=== PATIENT | male | born 1985 ===

== ENCOUNTER 2020-10-14 21:09 | Emergency (ER) | payer MEDICAID ==
--- NOTE | 2020-10-14 21:24 | EDM.PDOC ---
ED HPI GENERAL MEDICAL PROBLEM - General Chief Complaint: General Stated Complaint: RIGHT SIDE OF RIBS, FELL IN BATHROOM Time Seen by Provider: 10/14/20 21:15 Source of Information: Reports: Patient, RN, RN Notes Reviewed History Limitations: Reports: No Limitations - History of Present Illness INITIAL COMMENTS - FREE TEXT/NARRATIVE: Patient presents to the ED via personal vehicle with complaints of pain to his right lateral chest. The patient reports his slipped and fell in his bathroom approximately two hours ago and landed onto the side of the tub. He characterizes the pain as sharp in nature. He attest to shortness of breath with inspiration and feels as if he needs to splint to take a deep breath. He denies history of injury to his right lateral chest. He has taken ibuprofen 400mg x1 for this pain. He denies tobacco, alcohol, or recreational drug use. - Related Data Allergies Allergy/AdvReac Type Severity Reaction Status Date / Time Penicillins Allergy Cannot Verified 10/14/20 21:39 Remember Sulfa (Sulfonamide Allergy Cannot Verified 10/14/20 21:39 Antibiotics) Remember ED ROS GENERAL - Review of Systems Review Of Systems: Comprehensive ROS is negative, except as noted in HPI. ED EXAM, GENERAL - Physical Exam Exam: See Below Exam Limited By: No Limitations General Appearance: Alert, No Apparent Distress Eye Exam: Bilateral Eye: EOMI, Normal Inspection, PERRL (3mm) Respiratory/Chest: No Respiratory Distress, Lungs Clear, Normal Breath Sounds, No Accessory Muscle Use, Splinting. No: Chest Non-Tender (Right lateral chest tender), Crackles, Rales, Rhonchi, Wheezing, Stridor, Pleural Rub, Accessory Muscle Use, Retractions Cardiovascular: Normal Peripheral Pulses, Regular Rate, Rhythm, No Edema, No Gallop, No JVD, No Murmur, No Rub Peripheral Pulses: 2+: Radial (L), Radial (R) GI/Abdominal: Normal Bowel Sounds, Soft, Non-Tender, No Distention, No Mass, Pelvis Stable (Male) Exam: Deferred Rectal (Males) Exam: Deferred Back Exam: Normal Inspection, Full Range of Motion, Other (Pain to right lateral back) Extremities: Normal Inspection, Normal Range of Motion, Non-Tender, Normal Capillary Refill, No Pedal Edema Neurological: Alert, Oriented, CN II-XII Intact, Normal Cognition, Normal Gait, No Motor/Sensory Deficits Psychiatric: Normal Affect, Normal Mood Skin Exam: Warm, Dry, Intact, Normal Color, No Rash. No: Ecchymosis, Erythema, Mottled, Pallor, Petechiae Course - Vital Signs Last Recorded V/S: Last Vital Signs Temp 98 F 10/14/20 21:45 Pulse 91 10/14/20 22:05 Resp 19 10/14/20 21:45 BP 213/133 H 10/14/20 22:05 Pulse Ox 98 10/14/20 21:45 - Radiology Interpretation Free Text/Narrative:: [facility] Final Radiology Report Call: [phone] assistance Online chat: [email or web address] Name: MICHEAL MATTHEW Age: 34Years M Date: 10/14/2020 SSN: -- : [id number] Study: CR RIBS 2V W CHEST RT Requesting Physician: Beronica Wang Images: 3 Addl Studies: Provided Clinical History: Slipped in bathtub, fell onto right lateral chest Contrast: Contrast Medium: Contrast Amount: Contrast Method: CONFIDENTIALITY STATEMENT This report is intended only for use by the referring physician, and only in accordance with law. If you received this in error, call [phone]. Page 1 of 1 PROCEDURE INFORMATION: Exam: XR Right Ribs with PA Chest Exam date and time: 10/14/2020 9:38 PM Age: 34 years old Clinical indication: Other: Marker on area of pain; Additional info: Slipped in bathtub, fell onto right lateral chest TECHNIQUE: Imaging protocol: XR Right ribs with PA chest. Views: 3 views COMPARISON: No relevant prior studies available. FINDINGS: Lungs: Unremarkable. No consolidation. Pleural spaces: Unremarkable. No pleural effusion. No pneumothorax. Heart/Mediastinum: Unremarkable. No cardiomegaly. Bones/joints: The ribs are normal. Unremarkable. IMPRESSION: No acute findings. Thank you for allowing us to participate in the care of your patient. Dictated and Authenticated by: Rommel Chatterjee MD 10/14/2020 9:48 PM Central Time ([place] & [place]) - Re-Assessments/Exams Free Text/Narrative Re-Assessment/Exam: 10/14/20 During triage the patient was noted to have significant hypertension 210s/140s with repeat checks. The patient states he has been prescribed multiple antihypertensives in the past, including Lisinopril 20mg and HCTZ 25mg, which he stopped due to side effects. He states he cannot remember the last time he took antihypertensive medication, nor does he remember the last time he was examined by his primary care provider. He denies a history of sudden cardiac in his family and has never been diagnosed with arrhythmias. Will treat acute hypertension with Metoprolol 2.5mg IVP. Xray of right ribs unremarkable for acute processes, no fracture or dislocation. Discussed findings with patient. Acute pain treated with Ultram 50mg PO Patient's blood pressure slightly improved following Metoprolol. Will administer Catapress 0.1mg. Blood pressure improved with Catapress, now 160s/100s. Patient to have blood pressure recheck in the AM at the [facility]. Discussed importance of establishing with a provider early next week for physical and management of hypertension. Will treat HTN over the weekend with Lisinopril as patient states he has tolerated this medication in the past. Red flag signs and symptoms which would warrant reevaluation discussed. Patient verbalized understanding and agreement with the plan of care. Departure - Departure Time of Disposition: 23:00 Disposition: Home, Self-Care 01 Condition: Good Clinical Impression: Rib pain on right side, Fall from ground level, Hypertension, uncontrolled - Discharge Information *PRESCRIPTION DRUG MONITORING PROGRAM REVIEWED*: Not Applicable *COPY OF PRESCRIPTION DRUG MONITORING REPORT IN PATIENT DORA: Not Applicable Instructions: Hypertension, Adult, [id number] Forms: ED Department Discharge Additional Instructions: Rx: Ultram Rx: Lisinopril 1.) Blood pressure recheck tomorrow morning in the clinic. 2.) Take your Lisinopril with your morning meal. 3.) You may take ibuprofen (Motrin/Advil) 400mg every six hours, as pain and swelling persist. You may also take acetaminophen (Tylenol) 650mg every six hours, as pain persists. You may stagger these medications so you are taking a dose every three hours. 4.) Apply ice to the affected area for comfort; 20 minutes every hour. 5.) Return to the emergency department with any chest pain, shortness of breath, vision changes, or difficulty moving an arm/leg Sepsis Event Note (ED) - Focused Exam Vital Signs: Vital Signs Temp Pulse Pulse Resp BP BP Pulse Ox 10/14/20 22:05 91 213/133 H 10/14/20 21:45 98 F 97 19 169/129 H 98 10/14/20 21:15 98.1 F 103 H 19 204/168 H 98
[2020-10-14] MEDS ORDERED: Metoprolol Tartrate 5 MG/5 ML SDV IVPUSH ONE (21:41)
--- NOTE | 2020-10-14 21:48 | CR ---
PROCEDURE INFORMATION: Exam: XR Right Ribs with PA Chest Exam date and time: 10/14/2020 9:38 PM Age: 34 years old Clinical indication: Other: Marker on area of pain; Additional info: Slipped in bathtub, fell onto right lateral chest TECHNIQUE: Imaging protocol: XR Right ribs with PA chest. Views: 3 views COMPARISON: No relevant prior studies available. FINDINGS: Lungs: Unremarkable. No consolidation. Pleural spaces: Unremarkable. No pleural effusion. No pneumothorax. Heart/Mediastinum: Unremarkable. No cardiomegaly. Bones/joints: The ribs are normal. Unremarkable. IMPRESSION: No acute findings.
[2020-10-14] MEDS ORDERED: traMADol 50 MG Tab PO ONE (21:55)
[2020-10-14] MEDS ORDERED: cloNIDine 0.1 MG Tab PO ONE (23:04)
== END 2020-10-14 23:47 | disposition home or self-care (01) ==
LOC: DL.ED 21:09
DX: R07.81 Pleurodynia (principal); I10 Essential (primary) hypertension; Z88.0 Allergy status to penicillin; Z88.2 Allergy status to sulfonamides
CPT/HCPCS: 71101; 96374; 99283; A9270; J3490

== ENCOUNTER 2020-10-15 16:43 | Emergency (ER) | payer MEDICAID ==
[2020-10-15] MEDS ORDERED: Metoprolol Tartrate 25 MG Tab PO ONE (17:30)
--- NOTE | 2020-10-15 17:55 | EDM.PDOC ---
Scribed by [facility] 10/15/20 [id number] for Arias Dimas MD ED HPI GENERAL MEDICAL PROBLEM - General Chief Complaint: Cardiovascular Problem Stated Complaint: HIGH BP Time Seen by Provider: 10/15/20 16:54 Source of Information: Reports: Patient, RN, RN Notes Reviewed History Limitations: Reports: No Limitations - History of Present Illness INITIAL COMMENTS - FREE TEXT/NARRATIVE: Patient presents to ED by POV for rib injury. He was told to go to clinic to have blood pressure rechecked today. He went and blood pressure was 204/110 so they sent him to ER. He denies any pain other than the right flank-rib pain due to an injury, which he was seen for last night. He states he used to be on Lisinopril and Hydrochlorothiazide, but they never controlled his blood pressure, and he seem to react "poorly" to the HCTZ. Pt has Hx of sulfa allergy which may have resulted in his intolerance to the HCTZ. Pt denies chest pain, edema, rapid HR, irreg. HR, headache, visual changes, or edema. He smokes cigarettes. Pt states he is under a tremendous amount of stress. Onset: Gradual Duration: Getting Worse Location: Reports: Generalized Severity: Severe Improves with: Reports: None Worsens with: Reports: None Associated Symptoms: Reports: No Other Symptoms Treatments 21 DEALER: Reports: Other Medication(s) (Just prescribed Lisinopril from clinic but hasn't taken it yet.) Right Pain Score (Numeric/FACES): 6 - Related Data Allergies Allergy/AdvReac Type Severity Reaction Status Date / Time Penicillins Allergy Cannot Verified 10/15/20 16:55 Remember Sulfa (Sulfonamide Allergy Cannot Verified 10/15/20 16:55 Antibiotics) Remember Home Meds: Home Meds . [No Known Home Meds] 10/15/20 [History] Past Medical History Cardiovascular History: Reports: Hypertension Respiratory History: Reports: Other (See Below) (Tobacco dependence) Social & Family History - Family History Family Medical History: No Pertinent Family History - Tobacco Use Tobacco Use Status *Q: Current Every Day Tobacco User Tobacco Use Within Last Twelve Months: Cigarettes - Caffeine Use Caffeine Use: Reports: None - Living Situation & Occupation Living situation: Reports: with Family Occupation: Employed ED ROS GENERAL - Review of Systems Review Of Systems: Comprehensive ROS is negative, except as noted in HPI. ED EXAM, GENERAL - Physical Exam Exam: See Below Exam Limited By: No Limitations General Appearance: Alert, WD/WN, No Apparent Distress Eye Exam: Bilateral Eye: Normal Inspection Nose: Normal Inspection, Normal Mucosa, No Blood Throat/Mouth: Normal Inspection, Normal Lips, Normal Teeth, Normal Gums, Normal Oropharynx, Normal Voice, No Airway Compromise Head: Atraumatic, Normocephalic Neck: Normal Inspection, Supple, Non-Tender, Full Range of Motion. No: Carotid Bruit Respiratory/Chest: No Respiratory Distress, Lungs Clear, Normal Breath Sounds, No Accessory Muscle Use, Other (Chest wall tenderness (recent injury)) Cardiovascular: Normal Peripheral Pulses, Regular Rate, Rhythm, No Edema, No Ga llop, No JVD, No Murmur, No Rub GI/Abdominal: Normal Bowel Sounds, Soft, Non-Tender, No Organomegaly, No Distention, No Abnormal Bruit, No Mass Back Exam: Normal Inspection Extremities: Normal Inspection, Normal Range of Motion, Non-Tender, Normal Capillary Refill, No Pedal Edema Neurological: Alert, Oriented, CN II-XII Intact, Normal Cognition, Normal Gait, No Motor/Sensory Deficits Psychiatric: Normal Mood Skin Exam: Warm, Dry, Intact, Normal Color, No Rash #1 Interpretation EKG Date: 10/15/20 Time: 16:55 Rhythm: Other (sinus rhythm) Rate (Beats/Min): 82 [place]: Normal P-Wave: Present QRS: Other (old anterior and inferior Q waves.) ST-T: Normal QT: Normal Comparison: NA - No Prior EKG Course - Vital Signs Last Recorded V/S: Last Vital Signs Temp 95.8 F L 10/15/20 16:55 Pulse 85 10/15/20 16:55 Resp 16 10/15/20 16:55 BP 187/124 H 10/15/20 16:55 Pulse Ox 99 10/15/20 16:55 - Orders/Labs/Meds Orders: Active Orders 24 hr Category Date Time Status EKG 12 Lead [EKG Documentation Completion] [RC] STAT Care 10/15/20 17:01 Active CBC WITH AUTO DIFF [HEME] Stat Lab 10/15/20 17:31 Ordered COMPREHENSIVE METABOLIC PN,CMP [CHEM] Stat Lab 10/15/20 17:31 Ordered DRUG SCREEN URINE BIORAD [URCHEM] Stat Lab 10/15/20 17:32 Ordered ETHANOL BLOOD MEDICAL [CHEM] Stat Lab 10/15/20 17:31 Ordered MAGNESIUM [CHEM] Stat Lab 10/15/20 17:31 Ordered TROPONIN I [CHEM] Stat Lab 10/15/20 17:31 Ordered TSH ULTRASENSITIVE [CHEM] Stat Lab 10/15/20 17:31 Ordered UA RFX SANDRA AND CULT IF INDIC [URIN] Stat Lab 10/15/20 17:32 Ordered Meds: Medications Discontinued Medications Generic Name Dose Route Start Last Admin Trade Name Freq PRN Reason Stop Dose Admin Metoprolol Tartrate 25 mg 10/15/20 17:30 Metoprolol Tartrate 25 Mg Tab PO 10/15/20 17:31 ONETIME ONE - Re-Assessments/Exams Free Text/Narrative Re-Assessment/Exam: 10/15/20 17:49 I consulted the hospitalist, Dr. Merida regarding the pt's hypertension and Hx. Due to the long duration of untreated HTN Dr. Merida advises that the pt's BP should be lowered very slowly as rapidly lowering his pressure increases his short term risk of stroke more than the hypertension itself, and that the pt should have outpatient Renal Vasc. US to r/o renal artery stenosis. Pt was counselled regarding smoking and HTN. Free Text/Narrative Re-Assessment/Exam: 10/15/20 17:52 Pt eloped from the ER (left AMA without stating why). Departure - Departure Time of Disposition: 17:53 (Eloped) Disposition: Against Medical Advice 07 Condition: Undetermined Clinical Impression: Hypertension, uncontrolled Forms: ED Department Discharge Additional Instructions: Pt eloped from the department without saying why. Sepsis Event Note (ED) - Focused Exam Vital Signs: Vital Signs Temp Pulse Resp BP Pulse Ox 10/15/20 16:55 95.8 F L 85 16 187/124 H 99 - My Orders Last 24 Hours: My Active Orders 10/15/20 17:01 EKG 12 Lead [EKG Documentation Completion] [RC] STAT 10/15/20 17:31 CBC WITH AUTO DIFF [HEME] Stat COMPREHENSIVE METABOLIC PN,CMP [CHEM] Stat ETHANOL BLOOD MEDICAL [CHEM] Stat MAGNESIUM [CHEM] Stat TROPONIN I [CHEM] Stat TSH ULTRASENSITIVE [CHEM] Stat 10/15/20 17:32 DRUG SCREEN URINE BIORAD [URCHEM] Stat UA RFX SANDRA AND CULT IF INDIC [URIN] Stat - Assessment/Plan Last 24 Hours: My Active Orders 10/15/20 17:01 EKG 12 Lead [EKG Documentation Completion] [RC] STAT 10/15/20 17:31 CBC WITH AUTO DIFF [HEME] Stat COMPREHENSIVE METABOLIC PN,CMP [CHEM] Stat ETHANOL BLOOD MEDICAL [CHEM] Stat MAGNESIUM [CHEM] Stat TROPONIN I [CHEM] Stat TSH ULTRASENSITIVE [CHEM] Stat 10/15/20 17:32 DRUG SCREEN URINE BIORAD [URCHEM] Stat UA RFX SANDRA AND CULT IF INDIC [URIN] Stat I have read and agree with the documentation that has been completed regarding this visit. By signing this record, I attest that the documentation was completed in my physical presence and is an accurate record of the encounter.
[2020-10-15 18:24] LABS: ANION GAP 15.2 mEq/L (7-13); CHLORIDE,CL 103 mmol/L (98-107); SODIUM,NA 140 mmol/L (136-145)
== END 2020-10-15 17:55 | disposition left against medical advice (07) ==
LOC: DL.ED 16:43
DX: I10 Essential (primary) hypertension (principal); R07.81 Pleurodynia; Z88.2 Allergy status to sulfonamides; Z88.0 Allergy status to penicillin; Z72.0 Tobacco use
CPT/HCPCS: 36415; 80053; 80307; 83735; 84443; 84484; 85025; 93005; 93010; 99283; 99283-25; A9270-GY

== ENCOUNTER 2020-10-15 21:51 | Emergency (ER) | payer MEDICAID ==
--- NOTE | 2020-10-15 22:33 | EDM.PDOC ---
ED HPI GENERAL MEDICAL PROBLEM - General Chief Complaint: Cardiovascular Problem Stated Complaint: HIGH BP Time Seen by Provider: 10/15/20 22:20 Source of Information: Reports: Patient History Limitations: Reports: No Limitations - History of Present Illness INITIAL COMMENTS - FREE TEXT/NARRATIVE: This 34 yo male patient returns to the ED due to elevated blood pressure. The patient was seen in the ED yesterday for a fall and rib pain. During that visit, the patient was noted to have an elevated blood pressure. The patient attempted to follow up in the [facility] today, but was sent to the ED due to his elevated blood pressure. The patient was seen earlier today in the ED, was given an oral dose of Metoprolol, but the patient eloped prior to discharge due to a phone call that the patient reports he "had to take." The patient returns to the ED tonight for further monitoring of his blood pressure. The patient reports he was given a prescription for Tramadol (for his rib pain) and Lisinopril (for his blood pressure) by his clinic provider. The patient reports he filled the prescriptions, but has not taken the medications yet. The patient denies any chest pain, dizziness or shortness of breath. 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 [No Known Home Meds] 10/15/20 [History] Past Medical History Cardiovascular History: Reports: Hypertension Respiratory History: Reports: Other (See Below) (Tobacco dependence) Social & Family History - Family History Family Medical History: No Pertinent Family History - Caffeine Use Caffeine Use: Reports: None - Living Situation & Occupation Living situation: Reports: with Family Occupation: Employed ED ROS GENERAL - Review of Systems Review Of Systems: Comprehensive ROS is negative, except as noted in HPI. ED EXAM, GENERAL - Physical Exam Exam: See Below Exam Limited By: No Limitations General Appearance: Alert, WD/WN, Anxious Eye Exam: Bilateral Eye: EOMI, Normal Inspection, PERRL Ears: Normal External Exam, Normal Canal, Hearing Grossly Normal, Normal TMs Nose: Normal Inspection, Normal Mucosa, No Blood Throat/Mouth: Normal Inspection, Normal Lips, Normal Teeth, Normal Gums, Normal Oropharynx, Normal Voice, No Airway Compromise Head: Atraumatic, Normocephalic Neck: Normal Inspection, Supple, Non-Tender, Full Range of Motion Respiratory/Chest: No Respiratory Distress Cardiovascular: Normal Peripheral Pulses, Regular Rate, Rhythm, No Edema, No Gallop, No JVD, No Murmur, No Rub GI/Abdominal: Normal Bowel Sounds, Soft, Non-Tender, No Organomegaly, No Distention, No Abnormal Bruit, No Mass (Male) Exam: Deferred Rectal (Males) Exam: Deferred Back Exam: Normal Inspection Extremities: Normal Inspection, Normal Range of Motion, Non-Tender, Normal Capillary Refill, No Pedal Edema Neurological: Alert, Oriented, CN II-XII Intact, Normal Cognition, Normal Gait, Normal Reflexes, No Motor/Sensory Deficits Psychiatric: Normal Affect, Normal Mood Skin Exam: Warm, Dry, Intact, Normal Color, No Rash Lymphatic: No Adenopathy Course - Vital Signs Last Recorded V/S: Last Vital Signs Temp 36.9 C 10/15/20 22:09 Pulse 82 10/15/20 22:09 Resp 16 10/15/20 22:09 BP 190/126 H 10/15/20 22:09 Pulse Ox 99 10/15/20 22:09 - Re-Assessments/Exams Free Text/Narrative Re-Assessment/Exam: 10/15/20 22:34 During the earlier visit, the ED provider did consult with our hospitalist and was advised that lowering the patient's blood pressure slowly was the most appropriate method to avoid increased side effects of abruptly dropping his blood pressure. The patient was given an oral dose of Metoprolol during his visit. The patient was advised that his current blood pressure was 171/123 which is still considered high, but much lower than previous blood pressure readings. The patient was advised of the necessity for him to take his medications as pre scribed, monitor his home blood pressures and follow-up with his primary care facility early next week for continued evaluation and further management. Departure - Departure Time of Disposition: 22:37 Disposition: Home, Self-Care 01 Condition: Fair Clinical Impression: Hypertension Qualifiers: Hypertension type: unspecified Qualified Code(s): I10 - Essential (primary) hypertension Instructions: Hypertension, Adult, [id number] Care Plan Goals: The patient was advised of the examination and his current blood pressure. While the patient's blood pressure continues to be elevated, the patient was encouraged to take his blood pressure medications as directed. The patient was advised that his blood pressure should be managed by slowly bringing his blood pressure back to the normal range. The patient was encouraged to get a blood pressure cuff and write down his blood pressure readings before taking his medications, 2 hours after taking his medication and in the evening. The patient should bring his documented blood pressure readings and his blood pressure cuff to his appointment with his primary care facility early next week for continued evaluation and treatment. If the patient has any additional symptoms or concerns, the patient should either return to the emergency department or visit his primary care facility. Sepsis Event Note (ED) - Evaluation Sepsis Screening Result: No Definite Risk - Focused Exam Vital Signs: Vital Signs Temp Pulse Resp BP BP Pulse Ox 10/15/20 22:09 36.9 C 82 16 190/126 H 180/121 H 99
== END 2020-10-15 22:50 | disposition home or self-care (01) ==
LOC: DL.ED 21:51
DX: I10 Essential (primary) hypertension (principal); Z88.0 Allergy status to penicillin; Z88.2 Allergy status to sulfonamides
CPT/HCPCS: 99283

== ENCOUNTER 2021-05-07 19:27 | Emergency (ER) | payer MEDICAID ==
[2021-05-07 20:04] LABS: ANION GAP 17.3 mEq/L (7-13); CHLORIDE,CL 104 mmol/L (98-107); SODIUM,NA 142 mmol/L (136-145)
[2021-05-07] MEDS ORDERED: Labetalol 20 MG/4 ML Syringe IVPUSH ONE (20:23)
[2021-05-07 20:48] LABS: AMPHETAMINES,URINE NEGATIVE (NEGATIVE); BARBITURATES,URINE NEGATIVE (NEGATIVE); BENZODIAZEPINE,URINE NEGATIVE (NEGATIVE); MDMA (ECSTASY), URINE NEGATIVE (NEGATIVE); METHADONE,URINE NEGATIVE (NEGATIVE); METHAMPHETAMINES,URINE NEGATIVE (NEGATIVE); OPIATES,URINE NEGATIVE (NEGATIVE); OXYCODONE,URINE NEGATIVE (NEGATIVE); PHENCYCLIDINE,URINE NEGATIVE (NEGATIVE); TCA,URINE NEGATIVE (NEGATIVE)
[2021-05-07] MEDS ORDERED: cloNIDine 0.1 MG Tab PO ONE ×3 (21:07→22:18)
--- NOTE | 2021-05-07 21:18 | CR ---
PROCEDURE INFORMATION: Exam: XR Chest Exam date and time: 05/07/2021 7:58 PM Age: 35 years old Clinical indication: Other: Chest pain TECHNIQUE: Imaging protocol: XR of the chest. Views: 1 view. COMPARISON: CR Ribs 2V w Chest Rt 10/14/2020 9:38 PM FINDINGS: Tubes, catheters and devices: Cardiac lead wires are present. Lungs: The right lung is clear. A linear area of increased density at the left costophrenic angle most likely represents subsegmental atelectasis though pneumonia is not excluded. Pleural spaces: Unremarkable. No pleural effusion. No pneumothorax. Heart/Mediastinum: Unremarkable. No cardiomegaly. Bones/joints: Unremarkable. IMPRESSION: Minimal changes at the left lung base only.
--- NOTE | 2021-05-07 21:36 | EDM.PDOC ---
ED HPI GENERAL MEDICAL PROBLEM - General Chief Complaint: Chest Pain Stated Complaint: AMBULANCE Time Seen by Provider: 05/07/21 19:27 Source of Information: Reports: Patient, EMS, EMS Notes Reviewed, RN, RN Notes Reviewed History Limitations: Reports: No Limitations - History of Present Illness INITIAL COMMENTS - FREE TEXT/NARRATIVE: Patient is a 35-year-old male who presents to ER per [facility] with complaint of sternal chest pain that began approximately 2 hours prior to arrival. Patient states he has had a lot of stress recently, 20-year relationship ended. States he had an MA in September or October 2020. Patient states history of hypertension, states he has not been taking his blood pressure medications as prescribed. States he has not taken them in approximately the past 3 weeks. Patient was given 4 baby aspirin as well as 2 nitro in route per EMS. Pain decreased to a 5/10 at that time. Currently patient reports pain is 3-4/10. Pain is located to the left/middle chest without radiation. Patient states he does use marijuana, and rarely uses alcohol. Patient states he has not been vaccinated for Covid, has never had Covid, and has been tested but was negative for Covid. Onset: Today, Sudden Middle Mid-Sternal Chest Pain Score (Numeric/FACES): 3 - Related Data Allergies Allergy/AdvReac Type Severity Reaction Status Date / Time Penicillins Allergy Cannot Verified 10/15/20 16:55 Remember Sulfa (Sulfonamide Allergy Cannot Verified 10/15/20 16:55 Antibiotics) Remember Home Meds: Home Meds . [No Known Home Meds] 10/15/20 [History] Past Medical History - Past Health History Medical/Surgical History: Denies Medical/Surgical History Cardiovascular History: Reports: Hypertension, MA Respiratory History: Reports: Other (See Below) Musculoskeletal History: Reports: Fracture - Past Surgical History HEENT Surgical History: Reports: Tonsillectomy GI Surgical History: Reports: Appendectomy Social & Family History - Family History Family Medical History: No Pertinent Family History - Tobacco Use Tobacco Use Status *Q: Current Every Day Tobacco User Years of Tobacco use: 20 Packs/Tins Daily: 0.3 Second Hand Smoke Exposure: Yes - Caffeine Use Caffeine Use: Reports: None - Recreational Drug Use Recreational Drug Use: Yes Drug Use in Last 12 Months: Yes Recreational Drug Type: Reports: Marijuana/Hashish Recreational Drug Use Frequency: Rarely - Living Situation & Occupation Living situation: Reports: with Family Occupation: Employed ED ROS GENERAL - Review of Systems Review Of Systems: Comprehensive ROS is negative, except as noted in HPI. ED EXAM, GENERAL - Physical Exam Exam: See Below Exam Limited By: No Limitations General Appearance: Alert, WD/WN, No Apparent Distress, Anxious Eye Exam: Bilateral Eye: EOMI, Normal Inspection Ears: Normal External Exam, Hearing Grossly Normal Nose: Normal Inspection Throat/Mouth: Normal Inspection, Normal Voice, No Airway Compromise Head: Atraumatic, Normocephalic Neck: Normal Inspection, Supple, Non-Tender, Full Range of Motion Respiratory/Chest: No Respiratory Distress, Lungs Clear, Normal Breath Sounds, No Accessory Muscle Use, Chest Non-Tender Cardiovascular: Normal Peripheral Pulses, Regular Rate, Rhythm, No Edema, No Gallop, No JVD, No Murmur, No Rub Peripheral Pulses: 2+: Radial (L), Radial (R) GI/Abdominal: Normal Bowel Sounds, Soft, Non-Tender (Male) Exam: Deferred Rectal (Males) Exam: Deferred Back Exam: Normal Inspection, Full Range of Motion, NT Extremities: Normal Inspection, Normal Range of Motion, Non-Tender, Normal Capillary Refill, No Pedal Edema Neurological: Alert, Oriented, CN II-XII Intact, Normal Cognition, Normal Gait, Normal Reflexes, No Motor/Sensory Deficits Psychiatric: Normal Affect, Normal Mood, Anxious Skin Exam: Warm, Dry, Intact, Normal Color, No Rash Lymphatic: No Adenopathy #1 Interpretation EKG Date: 05/07/21 Time: 19:20 Rhythm: NSR Rate (Beats/Min): 86 [place]: LAD-Left [place] Deviation P-Wave: Present QRS: Normal ST-T: Normal QT: Normal Comparison: No Change Course - Vital Signs Last Recorded V/S: Last Vital Signs Temp 98.2 F 05/07/21 19:16 Pulse 99 05/07/21 19:16 Resp 18 05/07/21 19:16 BP 164/121 H 05/07/21 22:42 Pulse Ox 100 05/07/21 19:16 - Orders/Labs/Meds Labs: Laboratory Tests 05/07/21 05/07/21 05/07/21 Range/Units 19:35 19:35 19:35 WBC 7.5 (5.0-10.0) 10^3/uL RBC 5.10 (4.6-6.2) 10^6/uL Hgb 15.7 (14.0-18.0) g/dL Hct 46.0 (40.0-54.0) % MCV 90.2 (80-100) fL MCH 30.8 (27.0-34.0) pg MCHC 34.1 (33.0-35.0) g/dL Plt Count 278 (150-450) 10^3/uL Neut % (Auto) 63.2 (42.2-75.2) % Lymph % (Auto) 26.7 (20.5-50.1) % [place] % (Auto) 8.4 H (2-8) % Eos % (Auto) 1.3 (1.0-3.0) % Baso % (Auto) 0.4 (0.0-1.0) % PT 10.4 (9.0-12.0) SEC INR 1.0 (0.9-1.2) Sodium 142 (136-145) mmol/L Potassium 4.3 (3.5-5.1) mmol/L Chloride 104 (98-107) mmol/L Carbon Dioxide 25 (21-32) mmol/L Anion Gap 17.3 H (7-13) mEq/L BUN 14 (7-18) mg/dL Creatinine 1.38 H (0.70-1.30) mg/dL Est Cr Clr Drug Dosing 78.06 mL/min Estimated GFR (MDRD) 58 BUN/Creatinine Ratio 10.1 (No establ ref range) Glucose 96 (70-99) mg/dL Calcium 8.8 (8.5-10.1) mg/dL Total Bilirubin 0.7 (0.2-1.0) mg/dL AST 55 H (15-37) U/L ALT 121 H (16-63) U/L Alkaline Phosphatase 92 (46-116) U/L Troponin I High Sens 9 (<=76) pg/mL Total Protein 8.2 (6.4-8.2) g/dL Albumin 4.3 (3.4-5.0) g/dL Globulin 3.9 Albumin/Globulin Ratio 1.1 Urine Color (YELLOW) Urine Appearance (CLEAR) Urine pH (5.0-9.0) Ur Specific [place] (1.005-1.030) Urine Protein (NEGATIVE) Urine Glucose (UA) (NEGATIVE) Urine Ketones (NEGATIVE) Urine Occult Blood (NEGATIVE) Urine Nitrite (NEGATIVE) Urine Bilirubin (NEGATIVE) Urine Urobilinogen (0.2-1.0) mg/dL Ur Leukocyte Esterase (NEGATIVE) Urine RBC (0-5) /HPF Urine WBC (0-5/HPF) /HPF Ur Epithelial Cells (NOT SEEN) /HPF Urine Bacteria (0-FEW/HPF) /HPF Urine Opiates Screen (NEGATIVE) Ur Oxycodone Screen (NEGATIVE) Urine Methadone Screen (NEGATIVE) Ur Barbiturates Screen (NEGATIVE) U Tricyclic Antidepress (NEGATIVE) Ur Phencyclidine Scrn (NEGATIVE) Ur Amphetamine Screen (NEGATIVE) U Methamphetamines Scrn (NEGATIVE) Urine MDMA Screen (NEGATIVE) U Benzodiazepines Scrn (NEGATIVE) Urine Cocaine Screen (NEGATIVE) U Marijuana (THC) Screen (NEGATIVE) Ethyl Alcohol < 3 (0) mg/dL 05/07/21 05/07/21 05/07/21 Range/Units 20:33 20:33 21:35 WBC (5.0-10.0) 10^3/uL RBC (4.6-6.2) 10^6/uL Hgb (14.0-18.0) g/dL Hct (40.0-54.0) % MCV (80-100) fL MCH (27.0-34.0) pg MCHC (33.0-35.0) g/dL Plt Count (150-450) 10^3/uL Neut % (Auto) (42.2-75.2) % Lymph % (Auto) (20.5-50.1) % [place] % (Auto) (2-8) % Eos % (Auto) (1.0-3.0) % Baso % (Auto) (0.0-1.0) % PT (9.0-12.0) SEC INR (0.9-1.2) Sodium (136-145) mmol/L Potassium (3.5-5.1) mmol/L Chloride (98-107) mmol/L Carbon Dioxide (21-32) mmol/L Anion Gap (7-13) mEq/L BUN (7-18) mg/dL Creatinine (0.70-1.30) mg/dL Est Cr Clr Drug Dosing mL/min Estimated GFR (MDRD) BUN/Creatinine Ratio (No establ ref range) Glucose (70-99) mg/dL Calcium (8.5-10.1) mg/dL Total Bilirubin (0.2-1.0) mg/dL AST (15-37) U/L ALT (16-63) U/L Alkaline Phosphatase (46-116) U/L Troponin I High Sens 10 (<=76) pg/mL Total Protein (6.4-8.2) g/dL Albumin (3.4-5.0) g/dL Globulin Albumin/Globulin Ratio Urine Color Yellow (YELLOW) Urine Appearance Clear (CLEAR) Urine pH 5.0 (5.0-9.0) Ur Specific [place] >= 1.030 (1.005-1.030) Urine Protein Negative (NEGATIVE) Urine Glucose (UA) Negative (NEGATIVE) Urine Ketones 40 H (NEGATIVE) Urine Occult Blood Trace-lysed H (NEGATIVE) Urine Nitrite Negative (NEGATIVE) Urine Bilirubin Small H (NEGATIVE) Urine Urobilinogen 0.2 (0.2-1.0) mg/dL Ur Leukocyte Esterase Negative (NEGATIVE) Urine RBC Not seen (0-5) /HPF Urine WBC 0-5 (0-5/HPF) /HPF Ur Epithelial Cells Rare (NOT SEEN) /HPF Urine Bacteria Rare (0-FEW/HPF) /HPF Urine Opiates Screen Negative (NEGATIVE) Ur Oxycodone Screen Negative (NEGATIVE) Urine Methadone Screen Negative (NEGATIVE) Ur Barbiturates Screen Negative (NEGATIVE) U Tricyclic Antidepress Negative (NEGATIVE) Ur Phencyclidine Scrn Negative (NEGATIVE) Ur Amphetamine Screen Negative (NEGATIVE) U Methamphetamines Scrn Negative (NEGATIVE) Urine MDMA Screen Negative (NEGATIVE) U Benzodiazepines Scrn Negative (NEGATIVE) Urine Cocaine Screen Negative (NEGATIVE) U Marijuana (THC) Screen Positive H (NEGATIVE) Ethyl Alcohol (0) mg/dL Meds: Medications Discontinued Medications Generic Name Dose Route Start Last Admin Trade Name Freq PRN Reason Stop Dose Admin Clonidine HCl 0.1 mg 05/07/21 21:07 05/07/21 21:10 Clonidine 0.1 Mg Tab PO 05/07/21 21:08 0.1 mg ONETIME ONE Administration Clonidine HCl 0.1 mg 05/07/21 22:14 05/07/21 22:42 Clonidine 0.1 Mg Tab PO 05/07/21 22:15 0.1 mg ONETIME ONE Administration Clonidine HCl 0.1 mg 05/07/21 22:18 05/07/21 22:42 Clonidine 0.1 Mg Tab PO 05/07/21 22:19 0.1 mg ONETIME ONE Administration Labetalol HCl 20 mg 05/07/21 20:23 05/07/21 20:34 Labetalol 20 Mg/4 Ml Syringe IVPUSH 05/07/21 20:24 20 mg ONETIME ONE Administration - Radiology Interpretation Free Text/Narrative:: Chest xray: [facility] Final Radiology Report Call: [phone] assistance Online chat: [email or web address] Name: MICHEAL MATTHEW Age: 35Years M Date: 05/07/2021 SSN: -- : [id number] Study: CR CHEST 1V FRONTAL Requesting Physician: Serena Boo Images: 1 Addl Studies: Provided Clinical History: chest pain Contrast: Contrast Medium: Contrast Amount: Contrast Method: CONFIDENTIALITY STATEMENT This report is intended only for use by the referring physician, and only in accordance with law. If you received this in error, call [phone]. Page 1 of 1 PROCEDURE INFORMATION: Exam: XR Chest Exam date and time: 05/07/2021 7:58 PM Age: 35 years old Clinical indication: Other: Chest pain TECHNIQUE: Imaging protocol: XR of the chest. Views: 1 view. COMPARISON: CR Ribs 2V w Chest Rt 10/14/2020 9:38 PM FINDINGS: Tubes, catheters and devices: Cardiac lead wires are present. Lungs: The right lung is clear. A linear area of increased density at the left costophrenic angle most likely represents subsegmental atelectasis though pneumonia is not excluded. Pleural spaces: Unremarkable. No pleural effusion. No pneumothorax. Heart/Mediastinum: Unremarkable. No cardiomegaly. Bones/joints: Unremarkable. IMPRESSION: Minimal changes at the left lung base only. Thank you for allowing us to participate in the care of your patient. Dictated and Authenticated by: Micheal Chicas MD 05/07/2021 9:17 PM Central Time ([place] & [place]) See rad report Departure - Departure Time of Disposition: 22:10 Disposition: Against Medical Advice 07 Reason for Transfer *Q: Other Condition: Good Clinical Impression: Chest pain Qualifiers: Chest pain type: unspecified Qualified Code(s): R07.9 - Chest pain, unspecified Instructions: Chest Wall Pain, [id number], Nonspecific Chest Pain, Adult, [id number] Forms: ED Department Discharge, Refusal of Care AMA Additional Instructions: Begin taking your prescribed blood pressure medications Return to the ER with any worsening of symptoms Follow-up with your primary care provider Sepsis Event Note (ED) - Focused Exam Vital Signs: Vital Signs Temp Pulse Resp BP BP Pulse Ox 05/07/21 22:42 164/121 H 05/07/21 21:10 177/128 H 05/07/21 19:16 98.2 F 99 18 141/127 H 100
== END 2021-05-07 22:56 | disposition left against medical advice (07) ==
LOC: DL.ED 19:27
DX: R07.2 Precordial pain (principal); I10 Essential (primary) hypertension; I25.2 Old myocardial infarction; Z72.0 Tobacco use; Z88.0 Allergy status to penicillin; Z88.2 Allergy status to sulfonamides
CPT/HCPCS: 36415; 71045; 80053; 80305; 80307; 81001; 84484; 85025; 85610; 93005; 96374; 99285; A9270; J3490

== ENCOUNTER 2021-08-17 12:30 | Emergency (ER) | payer MEDICAID ==
[2021-08-17] MEDS ORDERED: Sodium Chloride 0.9% 10 ML Syringe FLUSH PRN (13:45)
[2021-08-17 14:33] LABS: ANION GAP 16.1 mEq/L (7-13); CHLORIDE,CL 103 mmol/L (98-107); SODIUM,NA 142 mmol/L (136-145)
== END 2021-08-17 16:55 | disposition home or self-care (01) ==
LOC: DL.ED 12:30
DX: R07.9 Chest pain, unspecified (principal); I10 Essential (primary) hypertension; F17.210 Nicotine dependence, cigarettes, uncomplicated; Z88.0 Allergy status to penicillin; Z88.2 Allergy status to sulfonamides
CPT/HCPCS: 36415; 71045; 80053; 81003; 82150; 83605; 83615; 83690; 83735; 84443; 84484; 85025; 85379; 86140; 93005; 99284-25

== ENCOUNTER 2023-04-05 07:59 | Emergency (ER) | payer MEDICAID ==
[2023-04-05] MEDS ORDERED: Sodium Chloride 0.9% 10 ML Syringe FLUSH PRN (08:08)
[2023-04-05] MEDS ORDERED: Ketorolac 30 MG/ML SDV IVPUSH ONE (08:13)
[2023-04-05] MEDS ORDERED: Sodium Chloride 0.9% 1,000 ML IV ONE (08:13)
[2023-04-05] MEDS ORDERED: Ondansetron 4 MG/2 ML SDV IV ONE (08:13)
[2023-04-05 08:21] LABS: BASOPHILS PERCENT AUTO 0.4 % (0.0-1.0); EOSINOPHILS PERCENT AUTO 2.4 % (1.0-3.0); HEMATOCRIT 45.9 % (40.0-54.0); HEMOGLOBIN 15.8 g/dL (14.0-18.0); LYMPHOCYTES PERCENT AUTO 25.9 % (20.5-50.1); MEAN CORPUSCULAR HEMOGLOBIN 31.5 pg (27.0-34.0); MEAN CORPUSCULAR HGB CONC 34.4 g/dL (33.0-35.0); MEAN CORPUSCULAR VOLUME 91.4 fL (80-100); MONOCYTES PERCENT AUTO 8.7 % (2-8); NEUTROPHILS PERCENT AUTO 62.6 % (42.2-75.2); PLATELET COUNT,PLT 233 10^3/uL (150-450); RED BLOOD CELL COUNT 5.02 10^6/uL (4.6-6.2); WHITE BLOOD CELL COUNT,WBC 8.3 10^3/uL (5.0-10.0)
[2023-04-05 08:40] LABS: A/G RATIO 1.2; ALBUMIN 4.1 g/dL (3.4-5.0); ANION GAP 12.5 mEq/L (7-13); BILIRUBIN TOTAL 0.3 mg/dL (0.2-1.0); BUN/CREATININE RATIO 11.1 (No establ ref range); CALCIUM 8.8 mg/dL (8.5-10.1); CREATININE 1.44 mg/dL (0.70-1.30); EST CRCL DRUG DOSING (CG) 73.35 mL/min; POTASSIUM,K 3.5 mmol/L (3.5-5.1); PROTEIN TOTAL,TP 7.5 g/dL (6.4-8.2)
[2023-04-05] MEDS ORDERED: Tamsulosin 0.4 MG Cap.ER PO ONE (08:52)
[2023-04-05] MEDS ORDERED: HYDROmorphone 1 MG/ML Syringe IVPUSH ONE (08:53)
== END 2023-04-05 09:14 | disposition home or self-care (01) ==
LOC: DL.ED 07:59
DX: N20.0 Calculus of kidney (principal); N23 Unspecified renal colic; Z88.0 Allergy status to penicillin; Z88.2 Allergy status to sulfonamides; I10 Essential (primary) hypertension
CPT/HCPCS: 36415; 74176; 80053; 85025; 96361; 96374; 96375; 99284; A9270; J1170; J1885; J2405; J7030; J3490

== ENCOUNTER 2023-04-14 12:07 | Emergency (ER) | payer MEDICAID ==
[2023-04-14] MEDS ORDERED: Sodium Chloride 0.9% 1,000 ML IV ONE ×2 (12:21→13:02)
[2023-04-14] MEDS ORDERED: Sodium Chloride 0.9% 10 ML Syringe FLUSH PRN (12:21)
[2023-04-14] MEDS ORDERED: Ondansetron 4 MG/2 ML SDV IVPUSH ONE (12:21)
[2023-04-14] MEDS ORDERED: HYDROmorphone 0.5 MG/0.5 ML Syringe IVPUSH ONE (12:22)
[2023-04-14] MEDS ORDERED: Ketorolac 30 MG/ML SDV IVPUSH ONE ×2 (12:22→13:42)
[2023-04-14 12:35] LABS: BASOPHILS PERCENT AUTO 0.1 % (0.0-1.0); EOSINOPHILS PERCENT AUTO 0.8 % (1.0-3.0); HEMATOCRIT 54.5 % (40.0-54.0); HEMOGLOBIN 19.4 g/dL (14.0-18.0); LYMPHOCYTES PERCENT AUTO 5.5 % (20.5-50.1); MEAN CORPUSCULAR HEMOGLOBIN 31.6 pg (27.0-34.0); MEAN CORPUSCULAR HGB CONC 35.6 g/dL (33.0-35.0); MEAN CORPUSCULAR VOLUME 88.8 fL (80-100); MONOCYTES PERCENT AUTO 6.2 % (2-8); NEUTROPHILS PERCENT AUTO 87.4 % (42.2-75.2); PLATELET COUNT,PLT 325 10^3/uL (150-450); RED BLOOD CELL COUNT 6.14 10^6/uL (4.6-6.2); WHITE BLOOD CELL COUNT,WBC 15.9 10^3/uL (5.0-10.0)
[2023-04-14 13:02] LABS: A/G RATIO 1.2; ALBUMIN 4.9 g/dL (3.4-5.0); ANION GAP 23.2 mEq/L (7-13); BILIRUBIN TOTAL 0.7 mg/dL (0.2-1.0); BUN/CREATININE RATIO 17.9 (No establ ref range); C-REACTIVE PROTEIN 1.32 ng/dL (<=0.30); CALCIUM 9.8 mg/dL (8.5-10.1); CREATININE 1.56 mg/dL (0.70-1.30); EST CRCL DRUG DOSING (CG) 65.64 mL/min; POTASSIUM,K 4.2 mmol/L (3.5-5.1)
[2023-04-14 13:03] LABS: LACTIC ACID 2.5 mmol/L (0.4-2.0)
[2023-04-14 14:38] LABS: APPEARANCE,URINE CLEAR (CLEAR); BILIRUBIN,URINE NEGATIVE (NEGATIVE); COLOR,URINE YELLOW (YELLOW); GLUCOSE,URINE NEGATIVE (NEGATIVE); KETONES,URINE 15 (NEGATIVE); LEUKOCYTE ESTERASE,URINE NEGATIVE (NEGATIVE); NITRITE,URINE NEGATIVE (NEGATIVE); OCCULT BLOOD,URINE TRACE-INTACT (NEGATIVE); PROTEIN,URINE NEGATIVE (NEGATIVE); UROBILINOGEN,URINE 0.2 mg/dL (0.2-1.0)
[2023-04-14] MEDS ORDERED: cefTRIAXone 2 GM Vial IVPUSH ONE (14:42)
[2023-04-14] MEDS ORDERED: Take Home: Doxycycline 100 MG Cap, 4 Cap Pack PO ONE (14:46)
[2023-04-14] MEDS ORDERED: Take Home: Ondansetron 4 MG Tab.DIS, 5 Tab Pack PO ONE (14:46)
[2023-04-14 14:59] LABS: BACTERIA,URINE FEW /HPF (0-FEW/HPF); EPITHELIAL CELLS,URINE FEW /HPF (NOT SEEN); MUCUS,URINE MODERATE /LPF (NOT SEEN); WBC,URINE 0-5 /HPF (0-5/HPF)
== END 2023-04-14 15:02 | disposition home or self-care (01) ==
LOC: DL.ED 12:07
DX: J18.9 Pneumonia, unspecified organism (principal); I10 Essential (primary) hypertension; Z88.0 Allergy status to penicillin; Z88.2 Allergy status to sulfonamides; Z88.8 Allergy status to other drugs, medicaments and biological substances; Z72.0 Tobacco use
CPT/HCPCS: 36415; 80053; 81001; 83605; 85025; 86140; 87040; 96361; 96374; 96375; 99284; 99284-25; A9270-GY; J0696; J1885; J2405; J3490; J7030; Q0162

== ENCOUNTER 2023-09-02 17:52 | Emergency (ER) | payer SELFPAY ==
[2023-09-02] MEDS ORDERED: Sodium Chloride 0.9% 10 ML Syringe FLUSH PRN (18:24)
[2023-09-02 18:46] LABS: BASOPHILS PERCENT AUTO 0.8 % (0.0-1.0); EOSINOPHILS PERCENT AUTO 7.1 % (1.0-3.0); HEMATOCRIT 45.8 % (40.0-54.0); HEMOGLOBIN 15.7 g/dL (14.0-18.0); MEAN CORPUSCULAR HEMOGLOBIN 31.6 pg (27.0-34.0); MEAN CORPUSCULAR HGB CONC 34.3 g/dL (33.0-35.0); MEAN CORPUSCULAR VOLUME 92.2 fL (80-100); MONOCYTES PERCENT AUTO 9.6 % (2-8); NEUTROPHILS PERCENT AUTO 59.5 % (42.2-75.2); PLATELET COUNT,PLT 251 10^3/uL (150-450); RED BLOOD CELL COUNT 4.97 10^6/uL (4.6-6.2); WHITE BLOOD CELL COUNT,WBC 6.2 10^3/uL (5.0-10.0)
[2023-09-02 18:59] LABS: HEMOGLOBIN A1C 5.2 % (<5.7)
[2023-09-02 19:11] LABS: A/G RATIO 1.2; ALBUMIN 3.6 g/dL (3.4-5.0); BILIRUBIN TOTAL 0.4 mg/dL (0.2-1.0); BUN/CREATININE RATIO 16.5 (No establ ref range); CREATININE 0.97 mg/dL (0.70-1.30); EST CRCL DRUG DOSING (CG) 102.24 mL/min; MAGNESIUM 1.8 mg/dL (1.8-2.4); PROTEIN TOTAL,TP 6.5 g/dL (6.4-8.2); TSH ULTRASENSITIVE 1.31 uIU/mL (0.36-3.74)
[2023-09-02 19:27] LABS: CORONAVIRUS COVID-19 NAA NEGATIVE (NEGATIVE); INFLUENZA A NAA NEGATIVE (NEGATIVE); INFLUENZA B NAA NEGATIVE (NEGATIVE); RESPIRATORY SYNCYTIAL VIR NAA NEGATIVE (NEGATIVE)
[2023-09-02 20:39] LABS: APPEARANCE,URINE CLEAR (CLEAR); BILIRUBIN,URINE NEGATIVE (NEGATIVE); COLOR,URINE YELLOW (YELLOW); GLUCOSE,URINE NEGATIVE (NEGATIVE); KETONES,URINE NEGATIVE (NEGATIVE); LEUKOCYTE ESTERASE,URINE NEGATIVE (NEGATIVE); NITRITE,URINE NEGATIVE (NEGATIVE); OCCULT BLOOD,URINE TRACE-INTACT (NEGATIVE); PROTEIN,URINE NEGATIVE (NEGATIVE); UROBILINOGEN,URINE 0.2 mg/dL (0.2-1.0)
[2023-09-02 21:03] LABS: BACTERIA,URINE FEW /HPF (0-FEW/HPF); EPITHELIAL CELLS,URINE FEW /HPF (NOT SEEN); RBC,URINE 0-5 /HPF (0-5); WBC,URINE 0-5 /HPF (0-5/HPF)
== END 2023-09-02 20:20 | disposition home or self-care (01) ==
LOC: DL.ED 17:52
DX: R55 Syncope and collapse (principal); I10 Essential (primary) hypertension; F17.210 Nicotine dependence, cigarettes, uncomplicated; E66.9 Obesity, unspecified; Z79.899 Other long term (current) drug therapy; Z88.0 Allergy status to penicillin; Z88.2 Allergy status to sulfonamides; Z88.8 Allergy status to other drugs, medicaments and biological substances; Z68.33 Body mass index [BMI] 33.0-33.9, adult
CPT/HCPCS: 0241U; 36415; 80053; 81001; 83036; 83735; 84443; 84484; 85025; 93005; 93010; 99284; J3490

== ENCOUNTER 2023-12-01 07:09 | Emergency (ER) | payer MEDICAID ==
[2023-12-01] MEDS: HYDROmorphone 1 MG/ML Syringe IM ONE (07:46)
== END 2023-12-01 07:53 | disposition home or self-care (01) ==
LOC: DL.ED 07:09
DX: K02.9 Dental caries, unspecified (principal); I10 Essential (primary) hypertension; Z88.0 Allergy status to penicillin; Z88.2 Allergy status to sulfonamides; Z88.8 Allergy status to other drugs, medicaments and biological substances; Z79.899 Other long term (current) drug therapy
CPT/HCPCS: 96372; 99282; 99283; J1170